=== PATIENT | female | born 1975 | race African-American/Black ===

== ENCOUNTER 2023-09-08 15:09 | Emergency (ER) | payer OTHER, SELFPAY ==
[2023-09-08] VITALS (17 sets, daily range): BP systolic 115–176; BP diastolic 81–105; PULSE 63–134; RESP 13–34; TEMP 36.8; O2SAT 91–100; BMI 21.1
--- NOTE | 2023-09-08 16:24 | ECG_ITS ---
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
--- NOTE | 2023-09-08 16:26 | ED.GENADUL1 ---
HPI - General Adult General Chief complaint: Overdose Stated complaint: GENERAL WEAKNESS Time Seen by Provider: 09/08/23 15:11 Mode of arrival: ambulance Limitations: no limitations History of Present Illness HPI narrative: [age] female presents for substance abuse. She came from drug treatment center where she was checking in. She used fentanyl yesterday and took apparently for Seroquel today. They gave her 4 mg of Narcan and drug treatment center and called the paramedics and transported her here. At no point was she unconscious. She doesn't seem to have a physical complaints. Related Data Home Medications Medication Instructions Recorded Confirmed cholecalciferol (vitamin D3) 125 5,000 unit PO DAILY 09/08/23 09/08/23 mcg (5,000 unit) capsule ibuprofen 600 mg tablet 600 mg PO TID 09/08/23 09/08/23 mirtazapine 15 mg tablet 15 mg PO DAILY 09/08/23 09/08/23 olanzapine 15 mg tablet 15 mg PO DAILY 09/08/23 09/08/23 quetiapine 100 mg tablet 100 mg PO DAILY 09/08/23 09/08/23 quetiapine 200 mg tablet 200 mg PO DAILY 09/08/23 09/08/23 quetiapine 50 mg tablet 50 mg PO DAILY 09/08/23 09/08/23 quetiapine 50 mg tablet 50 mg PO DAILY 09/08/23 09/08/23 topiramate 25 mg tablet 25 mg PO BID 09/08/23 09/08/23 Allergies Allergy/AdvReac Type Severity Reaction Status Date / Time coconut Allergy Unknown Verified 09/08/23 15:13 strawberry Allergy Unknown Verified 09/08/23 15:13 Review of Systems ROS Narrative A ten point review of systems is negative except as noted above. Exam Narrative Exam Narrative: Nurses note and vital signs reviewed and patient is not hypoxic. General: The patient appears restless and in no apparent distress. Skin: Warm, dry, no pallor noted. There is no rash noted. Head: Normocephalic, atraumatic Eye: Normal conjunctiva, no drainage Ears, Nose, Mouth, and Throat: oral mucosa is moist. Nares patent. Cardiovascular: Regular Rate and Rhythm Respiratory: Patient is in no distress, no accessory muscle use, lungs are clear to auscultation, no wheezing, rales or rhonchi Back: non-tender GI: soft and nontender Musculoskeletal: The patient has no evidence of calf tenderness, no pitting edema, symmetrical pulses noted bilaterally Neurological: A&O, normal speech Psychiatric: Cooperative Constitutional Vital Signs, click to edit/add: Last Vital Signs Temp 98.2 F 09/08/23 15:13 Pulse 72 09/08/23 16:46 Resp 18 09/08/23 16:46 BP 157/105 H 09/08/23 16:46 Pulse Ox 98 09/08/23 16:46 O2 Del Method Room Air 09/08/23 15:29 Course Vital Signs Vital signs: Vital Signs Temperature 98.2 F 09/08/23 15:13 Pulse Rate 81 09/08/23 15:13 Respiratory Rate 16 09/08/23 15:13 Blood Pressure 174/95 H 09/08/23 15:13 Pulse Oximetry 100 09/08/23 15:13 Temperature 98.2 F 09/08/23 15:13 Pulse Rate 72 09/08/23 16:46 Respiratory Rate 18 09/08/23 16:46 Blood Pressure 157/105 H 09/08/23 16:46 Pulse Oximetry 98 09/08/23 16:46 Oxygen Delivery Method Room Air 09/08/23 15:29 Medical Decision Making MDM Narrative Medical decision making narrative: The patient was observed here and she was able to sleep a great deal. She was given IV fluids and is being released. Differential Diagnosis Differential Diagnosis: substance abuse Lab Data Lab results reviewed: Yes I reviewed the patient's lab results Labs: Lab Results 09/08/23 Range/Units 16:36 WBC 9.8 (4.0-11.0) 10^3/uL RBC 3.73 L (4.20-5.40) 10^6/uL Hgb 10.5 L (12.0-16.0) g/dL Hct 31.4 L (36.0-48.0) % MCV 84.2 (81.0-99.0) fL MCH 28.2 (26.7-34.0) pg MCHC 33.4 (29.9-35.2) g/dL RDW 15.2 H (11.0-15.0) % Plt Count 305 (150-450) 10^3/uL MPV 10.0 (9.5-13.5) fL Neut % (Auto) 54.4 (43.0-75.0) % Lymph % (Auto) 36.5 (20.5-60.0) % [place] % (Auto) 6.5 (1.7-12.0) % Eos % (Auto) 1.9 (0.9-7.0) % Baso % (Auto) 0.5 (0.2-2.0) % Neut # (Auto) 5.3 (1.4-6.5) 10^3/uL Lymph # (Auto) 3.6 (1.2-3.8) 10^3/uL [place] # (Auto) 0.6 (0.3-0.8) 10^3/uL Eos # (Auto) 0.2 (0.0-0.7) 10^3/uL Baso # (Auto) 0.1 (0.0-0.1) 10^3/uL Abs Immat Gran (auto) 0.02 (0.00-0.03) 10^3/uL Imm/Tot Granulo (auto) 0.2 (0.0-0.5) % Sodium 142 (136-145) mmol/L Potassium 3.4 L (3.5-5.1) mmol/L Chloride 110 H (98-107) mmol/L Carbon Dioxide 27.1 (21.0-32.0) mmol/L Anion Gap 8.3 BUN 11.0 (7.0-18.0) mg/dL Creatinine 1.01 (0.55-1.02) mg/dL Est GFR ( Amer) >60 (>=60) Est GFR (Non-Af Amer) 59 L (>=60) BUN/Creatinine Ratio 10.9 Glucose 103 (74-106) mg/dL Calcium 8.1 L (8.5-10.1) mg/dL Serum HCG, Qual Negative (NEGATIVE) Discharge Plan Discharge Chief Complaint: Overdose Clinical Impression: Substance abuse Patient Disposition: Home, Self-Care Time of Disposition Decision: 18:44 Condition: Good Mode of Transportation: Private Vehicle Prescriptions / Home Meds: No Action mirtazapine 15 mg tablet 15 mg PO DAILY olanzapine 15 mg tablet 15 mg PO DAILY quetiapine 50 mg tablet 50 mg PO DAILY cholecalciferol (vitamin D3) 125 mcg (5,000 unit) capsule 5,000 unit PO DAILY quetiapine 50 mg tablet 50 mg PO DAILY quetiapine 200 mg tablet 200 mg PO DAILY topiramate 25 mg tablet 25 mg PO BID quetiapine 100 mg tablet 100 mg PO DAILY ibuprofen 600 mg tablet 600 mg PO TID Instructions: Polysubstance Use Disorder (ED) Stand Alone Forms: Portal Instructions Referrals: Physician,Non-Staff, MD [Primary Care Provider] - 1 week
[2023-09-08] MEDS: 0.9 % SODIUM CHLORIDE 1,000 ML 250 ML IV (16:46)
[2023-09-08 16:49] LABS: Basophils Absolute Auto 0.1 10^3/uL (0.0-0.1); Basophils Percent Auto 0.5 % (0.2-2.0); Eosinophils Absolute Auto 0.2 10^3/uL (0.0-0.7); Eosinophils Percent Auto 1.9 % (0.9-7.0); Hematocrit 31.4 % (36.0-48.0); Hemoglobin 10.5 g/dL (12.0-16.0); Immature Granulocytes Abs Auto 0.02 10^3/uL (0.00-0.03); Immature Granulocytes Pct Auto 0.2 % (0.0-0.5); Lymphocytes Absolute Auto 3.6 10^3/uL (1.2-3.8); Lymphocytes Percent Auto 36.5 % (20.5-60.0); Mean Corpuscular HGB Conc 33.4 g/dL (29.9-35.2); Mean Corpuscular Hemoglobin 28.2 pg (26.7-34.0); Mean Corpuscular Volume 84.2 fL (81.0-99.0); Monocytes Absolute Auto 0.6 10^3/uL (0.3-0.8); Monocytes Percent Auto 6.5 % (1.7-12.0); Neutrophils Absolute Auto 5.3 10^3/uL (1.4-6.5); Neutrophils Percent Auto 54.4 % (43.0-75.0); Platelet Count 305 10^3/uL (150-450); Red Blood Count 3.73 10^6/uL (4.20-5.40); Red Cell Distribution Width 15.2 % (11.0-15.0); White Blood Count 9.8 10^3/uL (4.0-11.0)
[2023-09-08 16:50] LABS: Anion Gap 8.3; BUN Creatinine Ratio 10.9; Calcium 8.1 mg/dL (8.5-10.1); Carbon Dioxide 27.1 mmol/L (21.0-32.0); Chloride 110 mmol/L (98-107); Estimated GFR (African America >60 (>=60); Estimated GFR (Non-African Ame 59 (>=60); Glucose 103 mg/dL (74-106); Potassium 3.4 mmol/L (3.5-5.1); Sodium 142 mmol/L (136-145)
[2023-09-08 16:57] LABS: HCG Qualitative NEGATIVE (NEGATIVE)
--- NOTE | 2023-09-08 18:37 | PC.NURSE ---
WALKED PT IN HALLWAY TO BATHROOM AND BACK. SNACK AND DRINK GIVEN.
--- NOTE | 2023-09-08 20:22 | ED_ITS ---
HPI - General Adult General Chief complaint: Overdose Stated complaint: GENERAL WEAKNESS Time Seen by Provider: 09/08/23 15:11 Mode of arrival: ambulance Limitations: no limitations History of Present Illness HPI narrative: This 47-year-old female was slated for discharge at 7 PM she was discharged from the emergency department aftter being evaluated for potentiaal overdose. She was checking into [facility] and admitted that she had used Seroquel yesterday. [facility] was reluctant to take her back because they stated that she realized suicidal ideation. The patient was seen and evaluated by myself and her nurse and at no time verbalized any suicidal ideation according to her. She is awake, alert, she has some degree of psychomotor agitation but flatly denies that she is suicidal. At this time she will be returned to [facility] to continue her rehab. Related Data Home Medications Medication Instructions Recorded Confirmed cholecalciferol (vitamin D3) 125 5,000 unit PO DAILY 09/08/23 09/08/23 mcg (5,000 unit) capsule ibuprofen 600 mg tablet 600 mg PO TID 09/08/23 09/08/23 mirtazapine 15 mg tablet 15 mg PO DAILY 09/08/23 09/08/23 olanzapine 15 mg tablet 15 mg PO DAILY 09/08/23 09/08/23 quetiapine 100 mg tablet 100 mg PO DAILY 09/08/23 09/08/23 quetiapine 200 mg tablet 200 mg PO DAILY 09/08/23 09/08/23 quetiapine 50 mg tablet 50 mg PO DAILY 09/08/23 09/08/23 quetiapine 50 mg tablet 50 mg PO DAILY 09/08/23 09/08/23 topiramate 25 mg tablet 25 mg PO BID 09/08/23 09/08/23 Allergies Allergy/AdvReac Type Severity Reaction Status Date / Time coconut Allergy Unknown Verified 09/08/23 15:13 strawberry Allergy Unknown Verified 09/08/23 15:13 Exam Constitutional Vital Signs, click to edit/add: Last Vital Signs Temp 98.2 F 09/08/23 15:13 Pulse 72 09/08/23 16:46 Resp 18 09/08/23 16:46 BP 157/105 H 09/08/23 16:46 Pulse Ox 98 09/08/23 16:46 O2 Del Method Room Air 09/08/23 15:29 Course Vital Signs Vital signs: Vital Signs Temperature 98.2 F 09/08/23 15:13 Pulse Rate 81 09/08/23 15:13 Respiratory Rate 16 09/08/23 15:13 Blood Pressure 174/95 H 09/08/23 15:13 Pulse Oximetry 100 09/08/23 15:13 Temperature 98.2 F 09/08/23 15:13 Pulse Rate 72 09/08/23 16:46 Respiratory Rate 18 09/08/23 16:46 Blood Pressure 157/105 H 09/08/23 16:46 Pulse Oximetry 98 09/08/23 16:46 Oxygen Delivery Method Room Air 09/08/23 15:29 Medical Decision Making Lab Data Labs: Lab Results 09/08/23 Range/Units 16:36 WBC 9.8 (4.0-11.0) 10^3/uL RBC 3.73 L (4.20-5.40) 10^6/uL Hgb 10.5 L (12.0-16.0) g/dL Hct 31.4 L (36.0-48.0) % MCV 84.2 (81.0-99.0) fL MCH 28.2 (26.7-34.0) pg MCHC 33.4 (29.9-35.2) g/dL RDW 15.2 H (11.0-15.0) % Plt Count 305 (150-450) 10^3/uL MPV 10.0 (9.5-13.5) fL Neut % (Auto) 54.4 (43.0-75.0) % Lymph % (Auto) 36.5 (20.5-60.0) % [place] % (Auto) 6.5 (1.7-12.0) % Eos % (Auto) 1.9 (0.9-7.0) % Baso % (Auto) 0.5 (0.2-2.0) % Neut # (Auto) 5.3 (1.4-6.5) 10^3/uL Lymph # (Auto) 3.6 (1.2-3.8) 10^3/uL [place] # (Auto) 0.6 (0.3-0.8) 10^3/uL Eos # (Auto) 0.2 (0.0-0.7) 10^3/uL Baso # (Auto) 0.1 (0.0-0.1) 10^3/uL Abs Immat Gran (auto) 0.02 (0.00-0.03) 10^3/uL Imm/Tot Granulo (auto) 0.2 (0.0-0.5) % Sodium 142 (136-145) mmol/L Potassium 3.4 L (3.5-5.1) mmol/L Chloride 110 H (98-107) mmol/L Carbon Dioxide 27.1 (21.0-32.0) mmol/L Anion Gap 8.3 BUN 11.0 (7.0-18.0) mg/dL Creatinine 1.01 (0.55-1.02) mg/dL Est GFR ( Amer) >60 (>=60) Est GFR (Non-Af Amer) 59 L (>=60) BUN/Creatinine Ratio 10.9 Glucose 103 (74-106) mg/dL Calcium 8.1 L (8.5-10.1) mg/dL Serum HCG, Qual Negative (NEGATIVE) Discharge Plan Discharge Chief Complaint: Overdose Clinical Impression: Substance abuse Patient Disposition: Home, Self-Care Time of Disposition Decision: 18:44 Condition: Good Mode of Transportation: Private Vehicle Prescriptions / Home Meds: No Action mirtazapine 15 mg tablet 15 mg PO DAILY olanzapine 15 mg tablet 15 mg PO DAILY quetiapine 50 mg tablet 50 mg PO DAILY cholecalciferol (vitamin D3) 125 mcg (5,000 unit) capsule 5,000 unit PO DAILY quetiapine 50 mg tablet 50 mg PO DAILY quetiapine 200 mg tablet 200 mg PO DAILY topiramate 25 mg tablet 25 mg PO BID quetiapine 100 mg tablet 100 mg PO DAILY ibuprofen 600 mg tablet 600 mg PO TID Instructions: Polysubstance Use Disorder (ED) Stand Alone Forms: Portal Instructions Referrals: Physician,Non-Staff, MD [Primary Care Provider] - 1 week
== END 2023-09-08 20:55 | disposition home or self-care (01) ==
PROVIDERS: Emergency Medicine; Emergency Provider Emergency Medicine
DX: F19.10 Other psychoactive substance abuse, uncomplicated (principal); Z79.899 Other long term (current) drug therapy
CPT/HCPCS: 36415; 80048; 84703; 85025; 93005; 99284